=== PATIENT | male | born 1980 | race Caucasian/White ===

== ENCOUNTER 2022-10-06 17:16 | Emergency (ER) | payer OTHER ==
[2022-10-06 17:29] VITALS: BP 141/71; PULSE 77; RESP 18; TEMP 98; BMI 36.0
[2022-10-06] MEDS ORDERED: ACETAMINOPHEN 500 MG TABLET (FP) PO ONE (18:58)
[2022-10-06] MEDS ORDERED: ACETAMINOPHEN 500 MG TABLET (FP) ONE (19:10)
== END 2022-10-06 19:44 | disposition home or self-care (01) ==
LOC: JER 17:16
DX: M79.651 Pain in right thigh (principal); R20.0 Anesthesia of skin
CPT/HCPCS: 99282-25